=== PATIENT | female | born 1990 | race Caucasian/White ===

== ENCOUNTER 2020-12-30 08:31 | Emergency (ER) | payer MEDICAID ==
[~2020-12-30] VITALS: Ht 160 cm; Wt 70.5 kg
[~2020-12-30 08:31] MED LIST: CEPH-571 PO; HYDR-4383 PO
[2020-12-30 09:07] LABS: BASOPHILS # (AUTO) 0.1 X10'3 (0-0.2); EOSINOPHILS # (AUTO) 0.2 X10'3 (0-0.9); EOSINOPHILS % (AUTO) 2.2 % (0-6); HEMATOCRIT 39.4 % (35.0-45.0); HEMOGLOBIN 13.3 g/dl (12.0-16.0); LYMPHOCYTES % (AUTO) 32.4 % (21-51); MEAN CORPUSCULAR HEMOGLOBIN 29.9 PG (27.0-31.0); MEAN CORPUSCULAR HGB CONC 33.9 g/dL (33.0-36.5); MEAN CORPUSCULAR VOLUME 88.3 FL (78-98); MEAN PLATELET VOLUME 7.6 FL (7.4-10.4); MONOCYTES # (AUTO) 0.8 X10'3 (0-0.9); MONOCYTES % (AUTO) 8.9 % (2-12); NEUTROPHILS # (AUTO) 5.1 X10'3 (1.8-7.7); NEUTROPHILS % (AUTO) 55.5 % (42-75); PLATELET COUNT 361 X10'3 (140-440); RED BLOOD COUNT 4.46 X10'6 (4.20-5.60); RED CELL DISTRIBUTION WIDTH 14.1 % (11.5-14.5); WHITE BLOOD COUNT 9.2 X10'3 (4.5-11.0)
[2020-12-30 09:32] LABS: ALANINE AMINOTRANSFERASE 31 U/L (12-78); ALBUMIN 3.8 G/DL (3.4-5.0); ALKALINE PHOSPHATASE 89 IU/L (46-116); ANION GAP 10 (8-16); ASPARTATE AMINO TRANSFERASE 20 U/L (10-37); BILIRUBIN,TOTAL 0.3 MG/DL (0.1-1.0); BLOOD UREA NITROGEN 12 MG/DL (7-18); BUN/CREATININE RATIO 18.5 (6.6-38.0); CALCIUM 8.6 MG/DL (8.5-10.1); CHLORIDE 106 MMOL/L (99-107); CREATININE 0.65 MG/DL (0.40-0.90); GLUCOSE 99 MG/DL (70-104); POTASSIUM 3.9 MMOL/L (3.5-5.1); SODIUM 139 MMOL/L (135-145); TOTAL CARBON DIOXIDE 23.2 MMOL/L (24-32); TOTAL PROTEIN 7.5 G/DL (6.4-8.2); eGFR > 90 ML/MIN
[2020-12-30] MEDS ORDERED: normal saline 1000ML IV soln IVB ONE (11:10)
[2020-12-30 11:48] LABS: URINE HCG NEGATIVE (NEG)
[2020-12-30 12:06] LABS: URINE AMPHETAMINE SCREEN NEGATIVE (Neg); URINE BARBITUATE SCREEN NEGATIVE (Neg); URINE BENZODIAZEPINES SCREEN NEGATIVE (Neg); URINE CANNABINOID SCREEN NEGATIVE (Neg); URINE COCAINE SCREEN NEGATIVE (Neg); URINE METHADONE SCREEN NEGATIVE (Neg); URINE OPIATE SCREEN NEGATIVE (Neg); URINE PHENCYCLIDINE SCREEN NEGATIVE (Neg)
[2020-12-30 12:09] LABS: CLARITY,URINE SLIGHTLY CLOUDY (Clear); COLOR,URINE YELLOW (Yellow); GLUCOSE, URINE NEGATIVE (Neg); KETONES,URINE NEGATIVE (Neg); LEUKOCYTE ESTERASE ,URINE NEGATIVE (Neg); NITRITES, URINE NEGATIVE (Neg); OCCULT BLOOD,URINE NEGATIVE (Neg); PROTEIN,URINE NEGATIVE (Neg)
[2020-12-30 12:20] LABS: UA COLLECTION TYPE VOIDED
[2020-12-30 12:23] LABS: MUCUS STRANDS MANY /LPF (Neg); SQUAMOUS EPITHELIAL CELL,UR MANY /LPF (FEW)
[2020-12-30 12:25] LABS: BACTERIA,URINE 2+ /HPF (Neg); RBC,URINE 0-2 /HPF (0-2); WBC,URINE 0-4 /HPF (0-4)
[2020-12-30 12:26] LABS: TRANSITIONAL EPI CELLS,URINE FEW /HPF
--- NOTE | 2020-12-30 12:37 | NUR ---
assumed care of pt from Dayanara LOMAS, pt is resting quietly on gurney, IVF infusing w/o
[2020-12-30 13:44] VITALS: BP 104/60
== END 2020-12-30 13:47 | disposition home or self-care (01) ==
LOC: ER 08:32
DX: R42 Dizziness and giddiness (principal); N95.1 Menopausal and female climacteric states; F12.90 Cannabis use, unspecified, uncomplicated; Z88.2 Allergy status to sulfonamides; Z91.010 Allergy to peanuts; Z79.2 Long term (current) use of antibiotics; Z79.899 Other long term (current) drug therapy
CPT/HCPCS: 36415; 71045; 80053; 80305; 81001; 81025; 84484; 85025; 93005; 96360; 99285; J7030

== ENCOUNTER 2022-08-05 15:41 | Outpatient (CLI) | payer MEDICAID ==
[2022-08-05 16:17] LABS: ALANINE AMINOTRANSFERASE 26 U/L (12-78); ALBUMIN 4.3 G/DL (3.4-5.0); ALBUMIN/GLOBULIN RATIO 1.1 (1.1-1.5); ALKALINE PHOSPHATASE 99 IU/L (46-116); ANION GAP 7 (8-16); ASPARTATE AMINO TRANSFERASE 20 U/L (10-37); BILIRUBIN,TOTAL 0.3 MG/DL (0.1-1.0); BLOOD UREA NITROGEN 9 MG/DL (7-18); BUN/CREATININE RATIO 11.7 (6.6-38.0); CALCIUM 8.8 MG/DL (8.5-10.1); CHLORIDE 104 MMOL/L (99-107); CREATININE 0.77 MG/DL (0.40-0.90); GLUCOSE 100 MG/DL (70-104); POTASSIUM 3.8 MMOL/L (3.5-5.1); SODIUM 139 MMOL/L (135-145); TOTAL CARBON DIOXIDE 27.6 MMOL/L (24-32); TOTAL PROTEIN 8.3 G/DL (6.4-8.2); eGFR 87 ML/MIN
== END 2022-08-05 23:59 | disposition home or self-care (01) ==
LOC: LAB 15:41
PROVIDERS: ATTEND Thoracic Surgery (Cardiothoracic Vascular Surgery)
DX: D15.0 Benign neoplasm of thymus (principal)
CPT/HCPCS: 36415; 80053

== ENCOUNTER 2022-08-08 18:11 | Emergency (ER) | payer MEDICAID ==
[~2022-08-08] VITALS: Ht 157.5 cm; Wt 70.0 kg
[2022-08-08 18:41] VITALS: BP 117/75
[2022-08-08 18:41] LABS: BASOPHILS % (AUTO) 0.5 % (0-1); EOSINOPHILS # (AUTO) 0.2 X10'3 (0-0.9); EOSINOPHILS % (AUTO) 2.6 % (0-6); HEMATOCRIT 37.7 % (35.0-45.0); HEMOGLOBIN 12.5 g/dl (12.0-16.0); LYMPHOCYTES # (AUTO) 3.1 X10'3 (1.1-4.8); LYMPHOCYTES % (AUTO) 34.3 % (21-51); MEAN CORPUSCULAR HEMOGLOBIN 29.5 PG (27.0-31.0); MEAN CORPUSCULAR HGB CONC 33.3 g/dL (33.0-36.5); MEAN CORPUSCULAR VOLUME 88.5 FL (78-98); MONOCYTES # (AUTO) 0.9 X10'3 (0-0.9); MONOCYTES % (AUTO) 9.6 % (2-12); NEUTROPHILS # (AUTO) 4.8 X10'3 (1.8-7.7); PLATELET COUNT 389 X10'3 (140-440); RED BLOOD COUNT 4.26 X10'6 (4.20-5.60); RED CELL DISTRIBUTION WIDTH 13.5 % (11.5-14.5); WHITE BLOOD COUNT 9.1 X10'3 (4.5-11.0)
[2022-08-08 18:42] LABS: ALANINE AMINOTRANSFERASE 26 U/L (12-78); ALBUMIN/GLOBULIN RATIO 1.1 (1.1-1.5); ALKALINE PHOSPHATASE 97 IU/L (46-116); ANION GAP 11 (8-16); ASPARTATE AMINO TRANSFERASE 20 U/L (10-37); BILIRUBIN,TOTAL 0.2 MG/DL (0.1-1.0); BLOOD UREA NITROGEN 10 MG/DL (7-18); BUN/CREATININE RATIO 13.3 (6.6-38.0); CALCIUM 8.8 MG/DL (8.5-10.1); CHLORIDE 104 MMOL/L (99-107); CREATININE 0.75 MG/DL (0.40-0.90); GLUCOSE 103 MG/DL (70-104); POTASSIUM 3.7 MMOL/L (3.5-5.1); SODIUM 140 MMOL/L (135-145); TOTAL CARBON DIOXIDE 25.2 MMOL/L (24-32); TOTAL PROTEIN 7.8 G/DL (6.4-8.2); eGFR 90 ML/MIN
[2022-08-08 18:50] LABS: MAGNESIUM 2.1 MG/DL (1.5-2.4)
== END 2022-08-08 20:45 | disposition home or self-care (01) ==
LOC: ER 18:11
DX: J40 Bronchitis, not specified as acute or chronic (principal); F41.9 Anxiety disorder, unspecified; F17.210 Nicotine dependence, cigarettes, uncomplicated; F12.90 Cannabis use, unspecified, uncomplicated; Z88.2 Allergy status to sulfonamides; Z91.010 Allergy to peanuts; Z79.899 Other long term (current) drug therapy
CPT/HCPCS: 36415; 71046; 80053; 83735; 83880; 84484; 85025; 93005; 99285; A6449

== ENCOUNTER 2022-08-10 09:42 | Outpatient (CLI) | payer MEDICAID ==
[2022-08-10] MEDS ORDERED: iohexol 300mg/ml 100ml inj. ONE (10:07)
== END 2022-08-10 23:59 | disposition home or self-care (01) ==
LOC: RAD 09:42
PROVIDERS: ATTEND Thoracic Surgery (Cardiothoracic Vascular Surgery)
DX: D15.0 Benign neoplasm of thymus (principal)
CPT/HCPCS: 71260; J3490; Q9967

== ENCOUNTER 2022-08-14 08:00 | Inpatient (IN) | payer MEDICAID ==
[~2022-08-14] VITALS: Ht 157.5 cm; Wt 80.0 kg
[2022-08-14] VITALS (15 sets, daily range): BP systolic 104–140; BP diastolic 61–90
[~2022-08-14 08:00] MED LIST changes: -CEPH-571 PO; +CYCL-1 PO; +FLUO20CA39 PO; -HYDR-4383 PO; +LIDOcaine 1% (10mg/ml) 2ml vial ONE; +MULT-1085 PO; +famotidine 20mg tablet PO ONE; +ringers solution, lacted 1,000 ML IV SCH
--- NOTE | 2022-08-14 09:30 | NUR ---
EDUCATED PATIENT ON THE USE OF THE INCENTIVE SPIROMETER AND ITS IMPORTANCE. ALSO EDUCATED PATIENT ON STERNAL PRECAUTIONS. PATIENT AND VERBALIZED AN UNDERSTANDING OF STERNAL PRECAUTIONS
[2022-08-14] MEDS ORDERED: ceFAZolin inj. 2,000 MG in dextrose 5%-water 100 ML IV ONE (10:08)
[2022-08-14] MEDS ORDERED: vancomycin 1,500 MG in NS 300ml IV soln IV ONE (10:09)
[2022-08-14] MEDS ORDERED: mupirocin 2% nasal ointment 1gm UD NS ONE (10:10)
[2022-08-14 10:30] LABS: PREOP URINE HCG NEGATIVE (NEGATIVE)
[2022-08-14 10:31] LABS: BASOPHILS # (AUTO) 0.1 X10'3 (0-0.2); BASOPHILS % (AUTO) 0.7 % (0-1); EOSINOPHILS # (AUTO) 0.1 X10'3 (0-0.9); EOSINOPHILS % (AUTO) 1.5 % (0-6); LYMPHOCYTES # (AUTO) 2.9 X10'3 (1.1-4.8); LYMPHOCYTES % (AUTO) 38.7 % (21-51); MEAN CORPUSCULAR HEMOGLOBIN 29.3 PG (27.0-31.0); MEAN CORPUSCULAR VOLUME 88.7 FL (78-98); MEAN PLATELET VOLUME 6.6 FL (7.4-10.4); MONOCYTES # (AUTO) 0.6 X10'3 (0-0.9); MONOCYTES % (AUTO) 7.6 % (2-12); NEUTROPHILS # (AUTO) 3.9 X10'3 (1.8-7.7); NEUTROPHILS % (AUTO) 51.5 % (42-75); PRE OP HEMATOCRIT 37.1 % (35.0-45.0); PRE OP HEMOGLOBIN 12.2 g/dL (12.0-16.0); PRE OP PLATELET COUNT 355 X10'3 (140-440); RED BLOOD COUNT 4.18 X10'6 (4.20-5.60); RED CELL DISTRIBUTION WIDTH 13.3 % (11.5-14.5)
[2022-08-14 10:31] LABS: CLARITY,URINE CLEAR (Clear); GLUCOSE, URINE NEGATIVE (Neg); KETONES,URINE NEGATIVE (Neg); LEUKOCYTE ESTERASE ,URINE NEGATIVE (Neg); NITRITES, URINE NEGATIVE (Neg); OCCULT BLOOD,URINE NEGATIVE (Neg); PH,URINE 7.5 (4.8-8.0); PROTEIN,URINE NEGATIVE (Neg); UROBILINOGEN,URINE 0.2 E.U/dL (0.2-1.0)
[2022-08-14 10:32] LABS: COLOR,URINE STRAW (Yellow); UA COLLECTION TYPE CLN CATCH MIDSTREAM
[2022-08-14 10:42] LABS: PRE OP PARTIAL THROMB. TIME 29 SECONDS (22-32)
[2022-08-14 10:44] LABS: ALKALINE PHOSPHATASE 90 IU/L (46-116); BLOOD UREA NITROGEN 12 MG/DL (7-18); BUN/CREATININE RATIO 17.1 (6.6-38.0); CALCIUM 8.7 MG/DL (8.5-10.1); CHLORIDE 103 MMOL/L (99-107); PRE OP ALT 23 U/L (30-65); PRE OP ANION GAP 7 (8-16); PRE OP AST 18 U/L (10-37); PRE OP BILIRUB, TOTAL 0.5 MG/DL (0.0-1.0); PRE OP GLUCOSE 89 MG/DL (70-104); PRE OP SODIUM 137 MMOL/L (135-145); TOTAL CARBON DIOXIDE 26.8 MMOL/L (24-32); TOTAL PROTEIN 7.9 G/DL (6.4-8.2); eGFR > 90 ML/MIN
[2022-08-14] MEDS ORDERED: midazolam 1 mg/ML 2ml injection ONE (12:05)
[2022-08-14] MEDS ORDERED: fentaNYL /PF 50mcg/ml 5ml ampule ONE (12:05)
[2022-08-14] MEDS ORDERED: ringers solution, lacted 1,000 ML IV SCH (12:25)
[2022-08-14] MEDS ORDERED: meperidine/PF 25mg/ml syringe IV PRN ×3 (12:25)
[2022-08-14] MEDS ORDERED: morphine 2 MG/ML inj. syringe IV PRN ×2 (12:25→16:00)
[2022-08-14] MEDS ORDERED: ondansetron/PF 4mg/2ml inj IV PRN ×2 (12:25→16:00)
[2022-08-14] MEDS ORDERED: proCHLORperazine 10 MG/2 ml inj IV PRN (12:25)
[2022-08-14] MEDS ORDERED: morphine 4 MG/ML inj SYRINge IV PRN ×2 (12:25→16:00)
[2022-08-14] MEDS ORDERED: BUPIVAcaine 0.25% w/Epi /PF 30ml vial ONE (13:18)
[2022-08-14] MEDS ORDERED: BUPIVAcaine 0.5% inj/PF 30 ml vial IJ ONE (13:20)
[2022-08-14] MEDS ORDERED: BUPIVAcaine 0.5% inj/PF 30 ML ONE (13:21)
[2022-08-14] MEDS ORDERED: propofol inj 20 ML IV ONE (13:47)
[2022-08-14] MEDS ORDERED: epiNEPHrine 1 mg/ml inj ONE (13:47)
[2022-08-14] MEDS ORDERED: ePHEDrine 50MG/ML INJ. ONE (13:47)
[2022-08-14] MEDS ORDERED: phenylephrine 10mg/ml inj. -priapism dosing ONE (13:47)
[2022-08-14] MEDS ORDERED: LIDOcaine 2% (20mg/ml) 5ml vial ONE (13:47)
[2022-08-14] MEDS ORDERED: rocuronium 10mg/ml inj IV ONE (13:47)
[2022-08-14] MEDS ORDERED: acetaminophen 1,000mg/100ml IV 100 ML IV ONE (13:58)
[2022-08-14] MEDS ORDERED: ceFAZolin 1000mg inj ONE (15:23)
[2022-08-14] MEDS ORDERED: meperidine/PF 25mg/ml syringe ONE ×2 (15:31)
--- NOTE | 2022-08-14 15:49 | NUR ---
Received from OR via HOSPITAL BED, accompanied by Anesthesiologist and report given by REJI Anesthesiologist. PATIENT AWAKE AND ORIENTED, SEVERE CHEST PAIN 04/13 NOTED-MD AT BEDSIDE ADMINISTERING PAIN MEDICATION, V/S WNL, 20G TO LEFT WRIST, ART LINE RUE, CENTRAL LINE RIGHT IJ-TRIPE LUMEN CATHETER. DICKSON CATHETER DRAINING CLEAR YELLOW URINE. MIDUPPER CHEST DRESSING C/D/I CONNECTED TO ATRIUM CHEST TUBE WITHOUT DRAIN ON 20MMHG PRESSURE. LR CURRENTLY RUNNING. Addendum: 08/14/22 at 1635 by Chirag Vines RN Amended: Links added.
[2022-08-14] MEDS ORDERED: morphine 10mg/ml inj. ONE (15:51)
[2022-08-14] MEDS ORDERED: normal saline 250ml IV soln 250 ML IV PRN (16:00)
[2022-08-14] MEDS ORDERED: magnesium 4gm in 100ml NS 100 ML IV PRN (16:00)
[2022-08-14] MEDS ORDERED: albumin (Human) 5% 250ml 250 ML IV PRN (16:00)
[2022-08-14] MEDS ORDERED: magnesium hydroxide 30ml (MOM) UD suspension PO PRN (16:00)
[2022-08-14] MEDS ORDERED: potassium Cl 40MEQ/270ML bag 250 ML IV PRN (16:00)
[2022-08-14] MEDS ORDERED: metoclopramide 5 mg/ml inj IV PRN (16:00)
[2022-08-14] MEDS ORDERED: acetaminophen 325mg tablet PO PRN ×2 (16:00)
[2022-08-14] MEDS ORDERED: mineral oil 133ml enema RC PRN (16:00)
[2022-08-14] MEDS ORDERED: potassium CL 10mEq/100ml bag 100 ML IV PRN (16:00)
[2022-08-14] MEDS ORDERED: bisacodyl 10mg suppository rectal RC PRN (16:00)
[2022-08-14] MEDS ORDERED: magnesium citrate 296ml oral solution PO PRN (16:00)
[2022-08-14] MEDS ORDERED: magnesium 2GM in 50ml NS 50 ML IV PRN (16:00)
[2022-08-14] MEDS ORDERED: sodium chloride 0.45% 1,000 ML IV SCH (16:00)
[2022-08-14] MEDS ORDERED: HYDROcodone/acetaminophen 10/325mg tab PO PRN (16:00)
[2022-08-14] MEDS ORDERED: potassium Cl 40MEQ/1/2NS 520ml 520 ML IV PRN (16:00)
[2022-08-14] MEDS ORDERED: LORazepam 2 mg/ml vial ONE (16:00)
[2022-08-14] MEDS ORDERED: furosemide 40mg/4ml inj ONE (16:13)
[2022-08-14] MEDS ORDERED: glycopyrrolate 0.2mg/ml inj ONE (16:13)
[2022-08-14] MEDS ORDERED: neostigmine methylsulfate 1 MG/ML 10ml vial ONE (16:13)
[2022-08-14] MEDS ORDERED: naloxone 0.4 mg/ml inj IV PRN (16:15)
[2022-08-14 16:19] LABS: ABG BASE EXCESS -4.9 mmol/L (-2.0-2.0); ABG HCO3 21.4 mmol/L (22.0-26.0); ABG OXYGEN SATURATION 98.7 % (94-97); ABG PCO2 (T) 45.1 mmHg (32.0-45.0); ABG PO2 (T) 172.7 mmHg (75.0-100.0); FCOHb 0.3 % (0.0-3.9); FLOW 6 L/min; FMetHb 0.4 % (0.0-1.5); TOTAL HEMOGLOBIN 11.5 G/dl (12.0-16.0)
[2022-08-14] MEDS ORDERED: PCA WASTE DOCUMENTATION MC SCH (16:20)
[2022-08-14 16:27] LABS: BASOPHILS # (AUTO) 0.1 X10'3 (0-0.2); BASOPHILS % (AUTO) 0.6 % (0-1); EOSINOPHILS % (AUTO) 0.2 % (0-6); HEMATOCRIT 30.5 % (35.0-45.0); HEMOGLOBIN 10.3 g/dl (12.0-16.0); LYMPHOCYTES # (AUTO) 1.5 X10'3 (1.1-4.8); LYMPHOCYTES % (AUTO) 11.2 % (21-51); MEAN CORPUSCULAR HEMOGLOBIN 29.6 PG (27.0-31.0); MEAN CORPUSCULAR HGB CONC 33.8 g/dL (33.0-36.5); MEAN CORPUSCULAR VOLUME 87.5 FL (78-98); MEAN PLATELET VOLUME 6.5 FL (7.4-10.4); MONOCYTES # (AUTO) 0.2 X10'3 (0-0.9); MONOCYTES % (AUTO) 1.5 % (2-12); NEUTROPHILS # (AUTO) 11.8 X10'3 (1.8-7.7); NEUTROPHILS % (AUTO) 86.5 % (42-75); PLATELET COUNT 282 X10'3 (140-440); RED BLOOD COUNT 3.49 X10'6 (4.20-5.60); RED CELL DISTRIBUTION WIDTH 13.5 % (11.5-14.5); WHITE BLOOD COUNT 13.6 X10'3 (4.5-11.0)
[2022-08-14] MEDS: HYDROmorph/NS 0.2 mg/ml PCA 100 ML IV SCH ×4 (16:42→23:00)
[2022-08-14 16:43] LABS: ALANINE AMINOTRANSFERASE 21 U/L (12-78); ALBUMIN 3.6 G/DL (3.4-5.0); ALBUMIN/GLOBULIN RATIO 1.2 (1.1-1.5); ALKALINE PHOSPHATASE 72 IU/L (46-116); ANION GAP 8 (8-16); ASPARTATE AMINO TRANSFERASE 20 U/L (10-37); BILIRUBIN,TOTAL 0.5 MG/DL (0.1-1.0); BLOOD UREA NITROGEN 12 MG/DL (7-18); BUN/CREATININE RATIO 16.4 (6.6-38.0); CALCIUM 7.7 MG/DL (8.5-10.1); CHLORIDE 103 MMOL/L (99-107); CREATININE 0.73 MG/DL (0.40-0.90); GLUCOSE 202 MG/DL (70-104); MAGNESIUM 1.6 MG/DL (1.5-2.4); PHOSPHORUS 3.1 MG/DL (2.3-4.5); POTASSIUM 3.4 MMOL/L (3.5-5.1); SODIUM 134 MMOL/L (135-145); TOTAL CARBON DIOXIDE 23.1 MMOL/L (24-32); TOTAL PROTEIN 6.6 G/DL (6.4-8.2); eGFR > 90 ML/MIN
[2022-08-14 16:45] LABS: APTT 24 SECONDS (22-32)
--- NOTE | 2022-08-14 17:04 | NUR ---
PATIENT HAS MET ALL CRITERIA FOR TRANSFER TO ICU FLOOR. VSS. DRESSINGS INTACT. BED LOW, CALL LIGHT PRESENT AND 2 RAILS UP. RN PRESENT TO ACCEPT CARE OF PATIENT AND REPORT HAS BEEN CALLED. ALL QUESTIONS ANSWERED TO ACCEPTING RN. Addendum: 08/14/22 at 1718 by Chirag Vines RN Amended: Links added.
[2022-08-14] MEDS: ceFAZolin/D5W- 1GM premix 50 ML IV SCH (18:56)
[2022-08-14] MEDS: mupirocin 2% nasal ointment 1gm UD NS SCH (20:00)
[2022-08-14] MEDS: ketorolac tromethamine 15mg/ml inj. IV SCH (21:10)
[2022-08-14] MEDS: vancomycin/NS 1 GM ADD-VANTAGE 250 ML IV SCH (21:10)
[2022-08-14] MEDS: gabapentin 300mg capsule PO SCH (21:14)
[2022-08-14] MEDS: sennosides/docusate sodium tablet PO SCH (21:14)
[2022-08-14 22:15] LABS: BASOPHILS % (AUTO) 0.1 % (0-1); EOSINOPHILS % (AUTO) 0 % (0-6); HEMATOCRIT 32.7 % (35.0-45.0); HEMOGLOBIN 10.9 g/dl (12.0-16.0); LYMPHOCYTES # (AUTO) 0.8 X10'3 (1.1-4.8); LYMPHOCYTES % (AUTO) 5.6 % (21-51); MEAN CORPUSCULAR HEMOGLOBIN 29.2 PG (27.0-31.0); MEAN CORPUSCULAR HGB CONC 33.2 g/dL (33.0-36.5); MEAN PLATELET VOLUME 6.4 FL (7.4-10.4); MONOCYTES # (AUTO) 0.4 X10'3 (0-0.9); NEUTROPHILS # (AUTO) 12.5 X10'3 (1.8-7.7); NEUTROPHILS % (AUTO) 91.3 % (42-75); PLATELET COUNT 308 X10'3 (140-440); RED BLOOD COUNT 3.72 X10'6 (4.20-5.60); RED CELL DISTRIBUTION WIDTH 13.2 % (11.5-14.5); WHITE BLOOD COUNT 13.7 X10'3 (4.5-11.0)
[2022-08-14 22:23] LABS: ALBUMIN 3.8 G/DL (3.4-5.0); ANION GAP 5 (8-16); BLOOD UREA NITROGEN 11 MG/DL (7-18); BUN/CREATININE RATIO 15.1 (6.6-38.0); CALCIUM 8.1 MG/DL (8.5-10.1); CHLORIDE 102 MMOL/L (99-107); CREATININE 0.73 MG/DL (0.40-0.90); GLUCOSE 176 MG/DL (70-104); MAGNESIUM 1.9 MG/DL (1.5-2.4); POTASSIUM 4.3 MMOL/L (3.5-5.1); SODIUM 133 MMOL/L (135-145); TOTAL CARBON DIOXIDE 25.7 MMOL/L (24-32); eGFR > 90 ML/MIN
[2022-08-15] VITALS (17 sets, daily range): BP systolic 102–138; BP diastolic 60–83
[2022-08-15] MEDS: ceFAZolin/D5W- 1GM premix 50 ML IV SCH ×3 (00:30→15:11)
[2022-08-15] MEDS: HYDROmorph/NS 0.2 mg/ml PCA 100 ML IV SCH ×12 (01:00→23:00)
[2022-08-15 02:38] LABS: BASOPHILS % (AUTO) 0.2 % (0-1); EOSINOPHILS % (AUTO) 0 % (0-6); HEMATOCRIT 31.3 % (35.0-45.0); HEMOGLOBIN 10.6 g/dl (12.0-16.0); LYMPHOCYTES # (AUTO) 1.2 X10'3 (1.1-4.8); LYMPHOCYTES % (AUTO) 8.1 % (21-51); MEAN CORPUSCULAR HEMOGLOBIN 29.9 PG (27.0-31.0); MEAN CORPUSCULAR VOLUME 87.9 FL (78-98); MEAN PLATELET VOLUME 6.9 FL (7.4-10.4); MONOCYTES # (AUTO) 0.8 X10'3 (0-0.9); NEUTROPHILS # (AUTO) 12.9 X10'3 (1.8-7.7); NEUTROPHILS % (AUTO) 86.7 % (42-75); PLATELET COUNT 292 X10'3 (140-440); RED BLOOD COUNT 3.56 X10'6 (4.20-5.60); RED CELL DISTRIBUTION WIDTH 13.2 % (11.5-14.5); WHITE BLOOD COUNT 14.9 X10'3 (4.5-11.0)
[2022-08-15 02:42] LABS: APTT 25 SECONDS (22-32)
[2022-08-15 02:46] LABS: ALANINE AMINOTRANSFERASE 25 U/L (12-78); ALBUMIN 3.6 G/DL (3.4-5.0); ALBUMIN/GLOBULIN RATIO 1.1 (1.1-1.5); ALKALINE PHOSPHATASE 68 IU/L (46-116); ANION GAP 5 (8-16); ASPARTATE AMINO TRANSFERASE 25 U/L (10-37); BILIRUBIN,TOTAL 0.4 MG/DL (0.1-1.0); BLOOD UREA NITROGEN 10 MG/DL (7-18); BUN/CREATININE RATIO 16.1 (6.6-38.0); CHLORIDE 102 MMOL/L (99-107); CREATININE 0.62 MG/DL (0.40-0.90); GLUCOSE 142 MG/DL (70-104); MAGNESIUM 1.9 MG/DL (1.5-2.4); PHOSPHORUS 2.9 MG/DL (2.3-4.5); SODIUM 133 MMOL/L (135-145); TOTAL CARBON DIOXIDE 26.5 MMOL/L (24-32); eGFR > 90 ML/MIN
[2022-08-15] MEDS: ketorolac tromethamine 15mg/ml inj. IV SCH ×3 (02:58→14:00)
[2022-08-15] MEDS: potassium Cl 20mEq/100mL bag 100 ML IV PRN ×3 (06:21→12:50)
--- NOTE | 2022-08-15 08:52 | NUR ---
Nutrition consult: Pt POD #1 s/p sternotomy with excision of thymus. Pt would benefit from protein education once appropriate. Will continue to follow. Addendum: 08/15/22 at [address] Amended: Links added.
[2022-08-15] MEDS: vancomycin/NS 1 GM ADD-VANTAGE 250 ML IV SCH ×2 (08:55→19:46)
[2022-08-15] MEDS: gabapentin 300mg capsule PO SCH ×3 (08:55→20:35)
[2022-08-15] MEDS: sennosides/docusate sodium tablet PO SCH ×2 (08:55→20:00)
[2022-08-15] MEDS: mupirocin 2% nasal ointment 1gm UD NS SCH ×2 (08:56→20:35)
[2022-08-15] MEDS: HYDROcodone/acetaminophen 10/325mg tab PO PRN (15:09)
[2022-08-15] MEDS ORDERED: LORazepam 0.5 MG tablet PO ONE (16:45)
[2022-08-15] MEDS ORDERED: cyclobenzaprine 10mg tablet PO SCH (21:00)
[2022-08-15] MEDS ORDERED: FLUoxetine 20mg capsule PO SCH (21:00)
[2022-08-16] MEDS: HYDROmorph/NS 0.2 mg/ml PCA 100 ML IV SCH ×5 (01:00→08:22)
[2022-08-16] MEDS: ceFAZolin/D5W- 1GM premix 50 ML IV SCH (01:24)
[2022-08-16 06:00] VITALS: BP 106/66
[2022-08-16 06:40] LABS: BASOPHILS % (AUTO) 0.3 % (0-1); EOSINOPHILS # (AUTO) 0.1 X10'3 (0-0.9); EOSINOPHILS % (AUTO) 0.7 % (0-6); HEMATOCRIT 31.1 % (35.0-45.0); HEMOGLOBIN 10.2 g/dl (12.0-16.0); MEAN CORPUSCULAR HGB CONC 32.7 g/dL (33.0-36.5); MEAN CORPUSCULAR VOLUME 88.6 FL (78-98); MEAN PLATELET VOLUME 7.3 FL (7.4-10.4); MONOCYTES # (AUTO) 1.1 X10'3 (0-0.9); NEUTROPHILS # (AUTO) 7.2 X10'3 (1.8-7.7); PLATELET COUNT 291 X10'3 (140-440); RED BLOOD COUNT 3.51 X10'6 (4.20-5.60); RED CELL DISTRIBUTION WIDTH 13.1 % (11.5-14.5); WHITE BLOOD COUNT 12.4 X10'3 (4.5-11.0)
[2022-08-16 06:42] LABS: ALBUMIN 3.2 G/DL (3.4-5.0); ANION GAP 8 (8-16); BLOOD UREA NITROGEN 9 MG/DL (7-18); BUN/CREATININE RATIO 12.7 (6.6-38.0); CALCIUM 7.8 MG/DL (8.5-10.1); CHLORIDE 106 MMOL/L (99-107); CREATININE 0.71 MG/DL (0.40-0.90); GLUCOSE 103 MG/DL (70-104); MAGNESIUM 2.1 MG/DL (1.5-2.4); POTASSIUM 3.4 MMOL/L (3.5-5.1); SODIUM 139 MMOL/L (135-145); TOTAL CARBON DIOXIDE 25.2 MMOL/L (24-32); eGFR > 90 ML/MIN
[2022-08-16] MEDS ORDERED: pantoprazole 40mg Tablet.DR PO SCH (07:30)
[2022-08-16] MEDS: gabapentin 300mg capsule PO SCH ×2 (07:47→13:38)
[2022-08-16] MEDS: mupirocin 2% nasal ointment 1gm UD NS SCH (07:47)
[2022-08-16] MEDS: sennosides/docusate sodium tablet PO SCH (07:47)
[2022-08-16] MEDS ORDERED: HYDR-3972 PO (09:18)
[2022-08-16] MEDS: potassium Cl 20 mEq SR tablet PO PRN ×2 (09:31→13:38)
[2022-08-16] MEDS: HYDROcodone/acetaminophen 10/325mg tab PO PRN ×2 (09:31→13:39)
[2022-08-16 10:00] VITALS: BP 105/66
--- NOTE | 2022-08-16 12:01 | NUR ---
F/u 08/16: Pt seen by JAH for written/verbal high protein diet ed w/ RD contact information provided. Pt reports takes routine MVI daily; prefers to have protein from meal rather than ONS supplementation. JAH encouraged pt to contact dietitian's office if further nutrition questions/concerns. Addendum: 08/16/22 at [address] Amended: Links added.
[2022-08-16] MEDS ORDERED: PCA WASTE DOCUMENTATION MC SCH (14:55)
--- NOTE | 2022-08-16 15:16 | NUR ---
pt discharged. Ivs removed. Discharge acket gone over with patient. Walker supplied to pt.
== END 2022-08-16 14:55 | disposition home or self-care (01) | DRG 651 ==
LOC: PAS IN 09:16 → CICU 2S 15:21 → PCU 3S 08-15 14:50
PROVIDERS: ADMIT Thoracic Surgery (Cardiothoracic Vascular Surgery); ATTEND Thoracic Surgery (Cardiothoracic Vascular Surgery)
PROC: 07BM0ZZ Excision of Thymus, Open Approach (ICD-10-PCS; principal; 2022-08-14 12:34)
DX: E32.0 Persistent hyperplasia of thymus (principal)
CPT/HCPCS: 36415; 36600; 71045; 80048; 80053; 81003; 81025; 82803; 82948; 83735; 84100; 84132; 85018; 85025; 85384; 85610; 85730; 86885; 86900; 86901; 97116; 97161; 97530; A4615; A4618; A5200; A6258; A6449; A7000; C1751; G0378; J0131; J0171; J0690; J1170; J1885; J1940; J2060; J2175; J2250; J2274; J2370; J2704; J2710; J3010; J3370; J3475; J3480; J3490; J7030; J7040; J7050; J7120; S0020

== ENCOUNTER 2023-10-17 10:37 | Emergency (ER) | payer MEDICAID ==
[~2023-10-17] VITALS: Ht 157.5 cm; Wt 71.4 kg
[~2023-10-17 10:37] MED LIST changes: +HYDR-3965 PO; +HYDR-3972 PO; -LIDOcaine 1% (10mg/ml) 2ml vial ONE; -famotidine 20mg tablet PO ONE; -ringers solution, lacted 1,000 ML IV SCH
[2023-10-17 11:03] VITALS: TEMP 98.5
[2023-10-17 11:38] LABS: BASOPHILS % (AUTO) 0.5 % (0-1); EOSINOPHILS # (AUTO) 0.1 X10'3 (0-0.9); EOSINOPHILS % (AUTO) 1.8 % (0-6); HEMATOCRIT 38.7 % (35.0-45.0); HEMOGLOBIN 13.3 g/dl (12.0-16.0); LYMPHOCYTES % (AUTO) 43.6 % (21-51); MEAN CORPUSCULAR HEMOGLOBIN 30.2 PG (27.0-31.0); MEAN CORPUSCULAR HGB CONC 34.3 g/dL (33.0-36.5); MEAN CORPUSCULAR VOLUME 88.1 FL (78-98); MEAN PLATELET VOLUME 9.1 FL (7.4-10.4); MONOCYTES # (AUTO) 0.6 X10'3 (0-0.9); NEUTROPHILS # (AUTO) 3.1 X10'3 (1.8-7.7); NEUTROPHILS % (AUTO) 45.1 % (42-75); PLATELET COUNT 298 X10'3 (140-440); RED BLOOD COUNT 4.39 X10'6 (4.20-5.60); RED CELL DISTRIBUTION WIDTH 12.9 % (11.5-14.5)
[2023-10-17 11:49] LABS: ALANINE AMINOTRANSFERASE 28 U/L (12-78); ALKALINE PHOSPHATASE 95 IU/L (46-116); ANION GAP 11 (8-16); ASPARTATE AMINO TRANSFERASE 15 U/L (10-37); BILIRUBIN,TOTAL 0.4 MG/DL (0.1-1.0); BLOOD UREA NITROGEN 11 MG/DL (7-18); BUN/CREATININE RATIO 13.1 (10.0-20.0); CHLORIDE 105 MMOL/L (99-107); CREATININE 0.84 MG/DL (0.40-0.90); GLUCOSE 88 MG/DL (70-104); POTASSIUM 3.7 MMOL/L (3.5-5.1); SODIUM 141 MMOL/L (135-145); TOTAL CARBON DIOXIDE 25.3 MMOL/L (24-32); TOTAL PROTEIN 8.2 G/DL (6.4-8.2); eCRCL 76 ML/MIN; eGFR 79 ML/MIN
[2023-10-17 11:57] LABS: PRO BRAIN NATRIURETIC PEPTIDE 38 PG/ML (0-125)
[2023-10-17 14:02] VITALS: BP 96/61; PULSE 82; RESP 17; O2SAT 99
== END 2023-10-17 17:57 | disposition home or self-care (01) ==
LOC: ER 10:37
DX: R42 Dizziness and giddiness (principal); R03.0 Elevated blood-pressure reading, without diagnosis of hypertension; F12.90 Cannabis use, unspecified, uncomplicated; Z88.2 Allergy status to sulfonamides; Z91.010 Allergy to peanuts; Z79.899 Other long term (current) drug therapy
CPT/HCPCS: 36415; 80053; 83880; 84484; 85025; 93005; 99284

== ENCOUNTER 2024-01-07 19:29 | Emergency (ER) | payer BC, MEDICAID ==
[~2024-01-07] VITALS: Ht 157.5 cm; Wt 68.5 kg
[2024-01-07 19:36] VITALS: BP 111/75; PULSE 87; RESP 16; TEMP 98.1; O2SAT 98
== END 2024-01-07 21:11 | disposition home or self-care (01) ==
LOC: ER 19:30
DX: M94.0 Chondrocostal junction syndrome [Tietze] (principal); R07.89 Other chest pain; F12.90 Cannabis use, unspecified, uncomplicated; Z88.2 Allergy status to sulfonamides; Z91.010 Allergy to peanuts; Z79.899 Other long term (current) drug therapy
CPT/HCPCS: 71045; 99283

== ENCOUNTER → 2024-02-01 | Outpatient (CLI) | payer BC ==
[2024-02-01] VITALS (21 sets, daily range): BP systolic 92–121; BP diastolic 47–72; PULSE 61–97
== END | disposition home or self-care (01) ==
LOC: CARD DIAG 07:48
PROVIDERS: ATTEND Internal Medicine Cardiovascular Disease
DX: R40.4 Transient alteration of awareness (principal)
CPT/HCPCS: 93660

== ENCOUNTER 2025-06-10 19:12 | Emergency (ER) | payer BC, MEDICAID ==
[~2025-06-10] VITALS: Ht 160 cm; Wt 62.4 kg
[~2025-06-10 19:12] MED LIST changes: -FLUO20CA39 PO; +FLUO20CA41 PO
[2025-06-10 19:14] VITALS: BP 111/74; PULSE 80; RESP 16; TEMP 99.1; O2SAT 99
[2025-06-10 20:01] LABS: MEAN PLATELET VOLUME 7.3 FL (7.4-10.4); RED CELL DISTRIBUTION WIDTH 13.9 % (11.5-14.5)
[2025-06-10 20:18] LABS: CREATININE 0.64 MG/DL (0.40-0.90); TOTAL CARBON DIOXIDE 25.4 MMOL/L (24-32); eCRCL 102 ML/MIN; eGFR > 90 ML/MIN
--- NOTE | 2025-06-10 21:31 | Physician Documentation ---
History of Present Illness ~ General Chief Complaint: Multiple Medical Complaints Stated Complaint: SEE CHEIF COMPLAINT Time Seen by MD: 21:10 OK to notify your PCP?: Yes Primary Medical Doctor: ayden Source: patient Mode of Arrival: POV Exam Limitations: no limitations History of Present Illness Initial Comments This is a 34-year-old female who comes in stating that is she has been sick for five weeks. The patient states that is she has bumps on her gums and beneath her tongue and believes it is causing GI upset. She states she has had intermittent constipation and diarrhea. She states that has very difficult for her to eat or drink. Medication Reconciliation Allergies: Coded Allergies: Sulfa (Sulfonamide Antibiotics) (Verified Allergy, Severe, HIVES, 10/17/23) peanut (Verified Allergy, Intermediate, 10/17/23) Scheduled Cyclobenzaprine* (Cyclobenzaprine*), 1 TAB PO HS, (Reported) Fluoxetine Hcl* (Prozac*), 1 CAP PO HS, (Reported) Multivitamin (Multi Vitamin Daily), 1 TAB PO Q7D, (Reported) Scheduled PRN Hydrocodone Bit/Acetaminophen 5/325 MG (Willard 5/325 MG), 1 TAB PO Q4H PRN for moderate or severe pain Hydrocodone Bit/Acetaminophen (Hydrocodon-Acetaminophn 10-325 tablet), 1 TAB PO Q6H PRN for MODERATE PAIN 4-6 Past Medical History Past Medical History: Headache, Anxiety Past Surgical History: no surgical history Smoking Status: Current every day smoker Alcohol Use: None Drug Use: marijuana Lives with: Spouse Physical Exam Physical Exam Vital Signs: Temperature: 99.1, Source: Oral, Heart Rate: 80, Respiratory Rate: 16, BP: 111/74, Pulse Oximetry: 99, Weight: 62.400 Oxygen Flow Rate: 0 Pulse Oximetry Reflects: adequate oxygenation General Appearance: alert, WD/WN, no apparent distress Head: normal inspection EENT To inspection of the oropharynx the patient has a points to her lower gums fever this is a very moving and beneath her tongue in his he lesions she is concerned about. I do not appreciate any obvious lesions. Oropharynx shows no erythema edema or exudates. Mucous membranes are moist. The patient is a wears dentures Respiratory: no respiratory distress Neurologic: oriented x4 Motor / Sensory: no motor deficit Psychiatric: agitation (The patient becomes tearful and upset during the exam) Skin: normal color, warm/dry Progress Results/Orders Reviewed/noted all lab results: Yes Results/Orders Orders - POLO OLIVER Crosby Screen (06/10/25 21:23) Vital Signs 06/10/25 19:14 Temp 99.1 Pulse 80 Resp 16 B/P (MAP) 111/74 Pulse Ox 99 O2 Flow Rate 0 Laboratory Tests Test 06/10/25 19:53 White Blood Count 10.4 Red Blood Count 4.17 L Hemoglobin 12.5 Hematocrit 38.0 Mean Corpuscular Volume 91.2 Mean Corpuscular Hemoglobin 30.1 Mean Corpuscular Hemoglobin Concent 33.0 Red Cell Distribution Width 13.9 Platelet Count 305 Mean Platelet Volume 7.3 L Neutrophils (%) (Auto) 55.5 Lymphocytes (%) (Auto) 31.6 Monocytes (%) (Auto) 8.3 Eosinophils (%) (Auto) 4.0 Basophils (%) (Auto) 0.6 Neutrophils # (Auto) 5.8 Lymphocytes # (Auto) 3.3 Monocytes # (Auto) 0.9 Eosinophils # (Auto) 0.4 Basophils # (Auto) 0.1 CBC Comment Sodium Level 138 Potassium Level 4.1 Chloride Level 105 Carbon Dioxide Level 25.4 Anion Gap 8 Blood Urea Nitrogen 10 Creatinine 0.64 Estimated GFR/1.73 m2 > 90 BUN/Creatinine Ratio 15.6 Glucose Level 99 Calcium Level 8.5 Total Bilirubin 0.2 Aspartate Amino Transf (AST/SGOT) 26 Alanine Aminotransferase (ALT/SGPT) 36 Alkaline Phosphatase 81 Total Protein 7.8 Albumin 4.0 Globulin 3.8 Albumin/Globulin Ratio 1.1 Lipase 59 Chemistry Comments Medical Decision Making Additional information obtaine: N/A Findings Spoke with the patient at length. I told her that I do apologize but it did not see any lesions in the mouth and I also told her that her lab work was all wit hin normal limits and that is this going to have no clinical suspicion for an acute abdomen. The patient asked if I can add on a Monospot to her blood work which I did. I told the patient that is she will need to follow up with the primary care physician for referral to ENT as she wants biopsies done of the tissues of the mouth. I also told her that she should follow up with GI for endoscopy. Return to the ER for any worsening or concerning symptoms. Differential Diagnosis Irritable bowel syndrome. Stomatitis. Anxiety. Doubt acute abdomen. Departure Disposition: HOME / SELF CARE / HOMELESS Impression: Primary Impression: Stomatitis Condition: Stable Discharge Instructions: Stomatitis Additional Instructions: As we discussed I suggest that is you follow up with the [facility] if he would like to have the tissues of the mouth biopsied and better evaluated. I also suggest referral to a underground repairer to do his your GI issues. Return for any worsening or acute symptoms Referrals: NO PRIMARY CARE PROVIDER (PCP) Signature Scribe Signature: No scribe Attestation: The note accurately reflects work and decisions made by me.Polo MIDDLETON 06/10/25 21:31 POLO OLIVER Jun 10, 2025 21:31
[2025-06-10 21:51] LABS: MONOTEST NEGATIVE (Neg)
== END 2025-06-10 21:50 | disposition home or self-care (01) ==
LOC: ER 19:12
DX: K12.1 Other forms of stomatitis (principal); F12.90 Cannabis use, unspecified, uncomplicated; F17.200 Nicotine dependence, unspecified, uncomplicated; F41.9 Anxiety disorder, unspecified; Z88.2 Allergy status to sulfonamides; Z91.010 Allergy to peanuts
CPT/HCPCS: 36415; 80053; 83690; 85025; 86308; 99283